=== PATIENT | male | born 1970 | race Caucasian/White ===

== ENCOUNTER 2024-08-19 18:23 | Emergency (ER) | payer BC ==
[2024-08-19 18:41] VITALS: TEMP 97.2
--- NOTE | 2024-08-19 19:10 | ERPHSYRPT ---
- History of Present Illness Source: patient, family Exam Limitations: clinical condition, other (Status post CVA) Patient Subjective Stated Complaint: C/O HTN with vomiting. [facility] report that patient has had HTN since being admitted there on 08/14/24 but the vomiting started today and Dr. Coon is concerned with patient's recent brain bleed history with patient's symptoms and wants patient to have a head CT. Triage Nursing Assessment: Patient arrived by ambulance. He is alert. He is able to answer questions appropriately. He states he has fallen a few times in the past several days but denies hitting his head. No active vomiting; patient denies nausea. Skin tone normal. No SOB. Physician History: Patient's had elevated blood pressure for about 2 days. Is running around 160/100. He did have a fall 2 days ago. And he said 3 episodes of emesis since then. The first 1 was yesterday was with breakfast. He had another episode after breakfast this morning and then 1 more later in the afternoon. He does n ot have any abdominal pain. He still having bowel movements. He is on Eliquis for DVT. He is in assisted because he had a pretty massive hemorrhagic stroke. He really does not talk much. He is not very good at ambulating but sometimes he forgets and gets up and tries to walk. That is what happened yesterday. They think he may have hit his head. He has not been having a lot of problems with blood pressure vomiting up until the last 2 days. They were worried of course about a head injury with a possible bleed on him. Allergies/Adverse Reactions: Penicillins Allergy (Mild, Verified 08/19/24 18:29) Hives Sulfa (Sulfonamide Antibiotics) Allergy (Mild, Verified 08/19/24 18:29) Hives Home Medications: Acetaminophen 325 mg [Tylenol 325 mg] 650 mg PO Q4H PRN 08/19/24 [History] Albuterol 2.5 mg/3 ml Neb [Proventil 2.5 mg/3 ml Neb] 2.5 mg IH Q4HRT 08/19/24 [History] Apixaban [Eliquis] 5 mg PO BID 08/19/24 [History] Atorvastatin Calcium [Lipitor 20MG Tablet] 20 mg PO DAILY 08/19/24 [History] Baclofen 5 mg PO BID 08/19/24 [History] Escitalopram Oxalate [Lexapro] 10 mg PO DAILY 08/19/24 [History] Labetalol HCl 100 mg [Trandate 100 MG] 300 mg PO BID 08/19/24 [History] Lisinopril 5 mg [Zestril 5 MG] 5 mg PO DAILY 08/19/24 [History] Magnesium Hydroxide [Milk of Magnesia] 2,400 mg PO DAILY 08/19/24 [History] Memantine HCl 10 mg PO BID 08/19/24 [History] Multivitamin/Iron/Folic Acid [Tab-A-Robert Multivit with Iron] 1 each PO DAILY 08/19/24 [History] Ondansetron ODT 4 MG [Zofran Odt 4 mg] 4 mg PO Q6H PRN PRN 08/19/24 [History] Polyethylene Glycol 3350 17 gm [Miralax Powder 17GM PACKET] 17 gm PO DAILY 08/19/24 [History] amantadine HCL [Amantadine] 100 mg PO TID 08/19/24 [History] Hx Tetanus, Diphtheria Vaccination/Date Given: Yes Hx Influenza Vaccination/Date Given: No Hx Pneumococcal Vaccination/Date Given: No Immunizations Up to Date: Yes Travel Risk - International Travel Have you traveled outside of the country in past 3 weeks: No - Emerging Infectious Disease Are you exhibiting symptoms associated with any current EIDs: Yes Symptoms: Vomitting - Review of Systems Constitutional: Other (The patient does not talk so I cannot get an accurate review of systems. 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, dysphagia, DVT - Past Surgical History Past Surgical History: Yes Neuro Surgical History: No Pertinent History Cardiac: No Pertinent History Respiratory: No Pertinent History Gastrointestinal: No Pertinent History Genitourinary: No Pertinent History Musculoskeletal: No Pertinent History Male Surgical History: No Pertinent History Other Surgical History: TONSILECTOMY - Social History Smoking Status: Never smoker Exposure to second hand smoke: No Drug Use: none Patient Lives Alone: No - Social Determinants of Health Will the patient participate in the screening: Declined to provide Comment: Currently resides at a nursing home care facility in [facility] - Nursing Vital Signs Nursing Vital Signs: Initial Vital Signs Temperature 97.2 F 08/19/24 18:29 Pulse Rate 68 08/19/24 18:29 Respiratory Rate 12 08/19/24 18:29 Blood Pressure 168/112 08/19/24 18:29 O2 Sat by Pulse Oximetry 100 08/19/24 18:29 Pain Scale Pain Intensity 0 - Physical Exam General Appearance: no apparent distress Eye Exam: PERRL/EOMI Ears, Nose, Throat Exam: normal ENT inspection Neck Exam: normal inspection, non-tender Respiratory Exam: normal breath sounds, lungs clear, No chest tenderness, No respiratory distress Cardiovascular Exam: regular rate/rhythm, normal heart sounds Gastrointestinal/Abdomen Exam: soft, normal bowel sounds, tenderness Rectal Exam: deferred Extremity Exam: normal inspection, pelvis stable, No amputations, No calf tenderness Neurologic Exam: alert, other (Patient is at his baseline neurological functioning), No oriented x 3 Skin Exam: normal color SpO2: 99 Ordered Tests: Active Orders 24 hr Category Date Time Status HEAD WITHOUT CONTRAST [CT] Stat Exams 08/19/24 18:28 Completed CBC W DIFF Stat Lab 08/19/24 19:30 Completed CMP Stat Lab 08/19/24 19:30 Completed Lab/Rad Data: Laboratory Result Diagrams 08/19/24 19:30 08/19/24 19:30 Laboratory Results 08/19/24 08/19/24 Range/Units 19:30 19:30 WBC 5.7 (4.23-9.07) x10^3/uL RBC 4.61 L (4.63-6.08) x10^6/uL Hgb 14.1 (13.7-17.5) g/dL Hct 42.1 (40.1-51.0) % MCV 91.3 (79.0-92.2) fL MCH 30.6 (25.7-32.2) pg MCHC 33.5 (32.3-36.5) g/dL RDW 12.3 (11.6-14.4) % Plt Count 255 (163-337) x10^3/uL MPV 10.0 (9.4-12.4) fL Gran % 67.2 (34.0-67.9) % Immature Gran % (Auto) 0.2 (0.001-0.429) % Nucleat RBC Rel Count 0.0 (0.00-0.2) % Eos # (Auto) 0.12 (0.04-0.54) x10^3/uL Immature Gran # (Auto) 0.01 (0.001-0.031) x10^3u/L Absolute Lymphs (auto) 1.15 L (1.32-3.57) x10^3/uL Absolute Monos (auto) 0.54 (0.30-0.82) x10^3/uL Absolute Nucleated RBC 0.00 (0.00-0.012) x10^3u/L Lymphocytes % 20.3 L (21.8-53.1) % Monocytes % 9.5 (5.3-12.2) % Eosinophils % 2.1 (0.8-7.0) % Basophils % 0.7 (0.2-1.2) % Absolute Granulocytes 3.81 (1.78-5.38) x10^3/uL Basophils # 0.04 (0.01-0.08) x10^3/uL Sodium 141 (135-145) mmol/L Potassium 3.7 (3.5-5.1) mmol/L Chloride 102 (98-107) mmol/L Carbon Dioxide 31 H (22-30) mmol/L Anion Gap 12.0 (5-15) MEQ/L BUN 7 L (9-20) mg/dL Creatinine 0.72 (0.66-1.25) mg/dL Estimated GFR 107.9 ML/MIN Glucose 107 H (74-106) mg/dL Calcium 9.6 (8.4-10.2) mg/dL Total Bilirubin 0.60 (0.2-1.3) mg/dL AST 20 (17-59) U/L ALT 23 (0-50) U/L Alkaline Phosphatase 111 (38-126) U/L Serum Total Protein 7.2 (6.3-8.2) g/dL Albumin 4.4 (3.5-5.0) g/dL - Progress Progress: unchanged Progress Note: Patient remained stable throughout stay. His blood pressure was a little bit elevated however he was doing fine. We got a CT. It showed some enlarged ventricles. I discussed the case with Dr. Whitmore who is on for neurosurgery at . That is where the patient was initially treated. He could not say for sure if it was new or not. We agreed to have the patient transferred for neurosurgical evaluation. 08/19/24 23:06 Medical Desision Making - Independent Historian Additional History obtained from: Spouse - Discussion of managment Care discussed with:: specialist (I discussed with the neurosurgeon at . His name is Dr. Whitmore. I am going to go ahead and transfer the patient toU.) Reviewed:: Test results, Need for additional workup Agreed on:: Treatment plan, place in obs Will see patient: in ED (At [facility]) - Diagnostic Testing Diagnostic test were ordered, analyzed, and reviewed by me: Yes Radiological Interpretation: Discussed w/ radiologist, Teleradiologist Report - Risk of complications Minimal Risk: Minimal risk of morbidity - Departure Departure Disposition: Transfer ([facility]) Clinical Impression: Nausea and vomiting, Head injury due to trauma Condition: Stable Critical Care Time: No Referrals: [facility] [Primary Care Provider] - Follow up/PCP as directed
--- NOTE | 2024-08-19 19:21 | XRAY ---
CLINICAL HISTORY: HTN, VOMITING, PREVIOUS BLEED COMPARISON: No previous study to compare. TECHNIQUE: An axial non-contrast CT scan of the brain was performed from the skull base to the high parietal region. One of the following dose reduction techniques were utilized for this exam: Automated exposure control, adjustment of the mA and/or kV according to patient size, use of iterative reconstruction. FINDINGS: Brain Parenchyma: Minimal hyperdensities in the left caudate head. Intermediate to hypodense areas also in the left caudate head nucleus and body extending to the anterior limb of the left internal capsule as well as in the left external capsule, could represent temporal evolution of the previously noted hemorrhage with surrounding edema versus new subacute to chronic infarction with hemorrhagic component. Small chronic lacunar infarct in the right basal ganglia. Ventricular System: Ventricles are normal in size and configuration. No evidence of hydrocephalus or ventricular enlargement. Subarachnoid Spaces: Normal sulci and cisterns. No evidence of subarachnoid hemorrhage or extra-axial fluid collections. Cerebellum and Brainstem: Normal size and signal. No masses, lesions, or areas of abnormal signal. Skull and Meninges: Normal skull morphology. IMPRESSION: 1. Above findings could represent the temporal evolution of the previously noted hemorrhage with surrounding edema versus new subacute to chronic infarction with the hemorrhagic component. Comparison with prior imaging is suggested. Consider MRI for further evaluation if clinically warranted. 2. Small chronic lacunar infarct in the right basal ganglia. [facility] ER was called at [phone] at 6:15 PM [employer], 08/19/2024 and Kamilla Nurse was informed regarding the presence of Significant Medical Findings in the report. Electronically Signed by: Gladys Carrasco MD. (08/19/2024 19:17:17 EST)
[2024-08-19 19:42] LABS: Absolute Neutrophil Ct (ANC) 3.81 x10^3/uL (1.78-5.38); BASOPHIL % 0.7 % (0.2-1.2); Basophil (Absolute #) 0.04 x10^3/uL (0.01-0.08); Eosinophil % 2.1 % (0.8-7.0); Eosinophil (Absolute #) 0.12 x10^3/uL (0.04-0.54); Hematocrit 42.1 % (40.1-51.0); Hemoglobin 14.1 g/dL (13.7-17.5); IMMATURE GRAN # 0.01 x10^3u/L (0.001-0.031); IMMATURE GRAN % 0.2 % (0.001-0.429); Lymphocyte (Absolute #) 1.15 x10^3/uL (1.32-3.57); Lymphocytes % 20.3 % (21.8-53.1); Mean Cell Volume 91.3 fL (79.0-92.2); Mean Corpuscular Hemoglobin 30.6 pg (25.7-32.2); Mean Corpuscular Hgb Concent. 33.5 g/dL (32.3-36.5); Monocyte (Absolute #) 0.54 x10^3/uL (0.30-0.82); Monocytes % 9.5 % (5.3-12.2); Neutrophil % 67.2 % (34.0-67.9); Platelet Count 255 x10^3/uL (163-337); Red Blood Count 4.61 x10^6/uL (4.63-6.08); Red Cell Distribution Width 12.3 % (11.6-14.4); White Blood Count 5.7 x10^3/uL (4.23-9.07)
[2024-08-19 19:56] LABS: ALBUMIN 4.4 g/dL (3.5-5.0); BILIRUBIN,TOTAL 0.6 mg/dL (0.2-1.3); Calcium 9.6 mg/dL (8.4-10.2); Creatinine 1 0.72 mg/dL (0.66-1.25); EST GLOMERULAR FILTRATION RATE 107.9 ML/MIN; Potassium 3.7 mmol/L (3.5-5.1); Total Protein 7.2 g/dL (6.3-8.2)
[2024-08-19 23:02] VITALS: BP 177/128; PULSE 70; RESP 10
[2024-08-19 23:07] VITALS: O2SAT 99
== END 2024-08-19 23:43 | disposition short-term general hospital (02) ==
LOC: ED 18:23
DX: S09.90XA Unspecified injury of head, initial encounter (principal); Y92.129 Unspecified place in nursing home as the place of occurrence of the external cause; R11.2 Nausea with vomiting, unspecified; W19.XXXA Unspecified fall, initial encounter; Z86.73 Personal history of transient ischemic attack (TIA), and cerebral infarction without residual deficits; Z79.01 Long term (current) use of anticoagulants; Z79.899 Other long term (current) drug therapy; Z91.81 History of falling
CPT/HCPCS: 36415; 70450; 80053; 85025; 99284; 99285